=== PATIENT | female | born 1965 | race Caucasian/White ===

== ENCOUNTER 2018-10-21 00:57 | Inpatient (IN) ==
[2018-10-21 02:18] LABS: Baso % (Auto) 0.3 % (0.0-2.0); Eos # (Auto) 0.1 th/mm3 (0.0-0.4); Eos % (Auto) 1.4 % (0.0-4.0); Hematocrit 43.4 % (35.0-46.0); Lymph # (Auto) 3.3 th/mm3 (1.0-4.8); Lymph % (Auto) 37.5 % (9.0-44.0); Mean Corpuscular HGB Conc 34.5 % (32.0-36.0); Mean Corpuscular Hemoglobin 33.7 pg (27.0-34.0); Mean Corpuscular Volume 97.8 fL (80.0-100.0); Mean Platelet Volume 7.3 fL (7.0-11.0); Mono # (Auto) 0.6 th/mm3 (0.0-0.9); Mono % (Auto) 6.3 % (0.0-8.0); Neut # (Auto) 4.8 th/mm3 (1.8-7.7); Neut % (Auto) 54.5 % (16.0-70.0); Platelet Count 217 th/mm3 (150-450); Red Blood Count 4.44 mil/mm3 (4.00-5.30); Red Cell Distribution Width 13.7 % (11.6-17.2); White Blood Count 8.9 th/mm3 (4.0-11.0)
[2018-10-21 02:30] LABS: Alanine Aminotransferase 31 U/L (10-53); Albumin 4.2 g/dL (3.4-5.0); Anion Gap 8 meq/L (5-15); Aspartate Aminotransferase 24 U/L (15-37); Blood Urea Nitrogen 11 mg/dL (7-18); Calcium 8.6 mg/dL (8.5-10.1); Carbon Dioxide 27.3 meq/L (21.0-32.0); Chloride 111 meq/L (98-107); Glomerular Filtration Rate 83 mL/min (>89); Glucose,Random 93 mg/dL (74-106); Potassium 3.8 meq/L (3.5-5.1); Sodium 146 meq/L (136-145)
[2018-10-21 02:33] LABS: Alcohol 256 mg/dL (0-5)
[2018-10-21 02:39] LABS: Alkaline Phosphatase 69 U/L (45-117); Thyroid Stimulating Hormone 0.578 uIU/mL (0.358-3.740); Total Protein 8.3 g/dL (6.4-8.2)
--- NOTE | 2018-10-21 04:22 | ED ---
HPI General Chief Complaint: Psychiatric Symptoms Stated Complaint: Psych eval, [facility]SD Time Seen by Provider: 10/21/18 01:52 Source: patient and police Mode of arrival: other Limitations: no limitations History of Present Illness HPI Narrative: Patient presents to our facility under a [place] act by law enforcement. Patient states that she was seen in our facility 3 days ago for suicidal ideation/depression. Patient states that they did not help her and that she did not have any resources. States that since she has been home she has been drinking and has had thoughts of wanting to kill herself. Patient states that she had a plan to take a whole bottle of pills MD complaint: Reports suicidal ideation and feels depressed History of same: Yes Relieving factors: none Exacerbating factors: none Context: Reports recent alcohol abuse Associated psychiatric symptoms: Reports depression Associated symptoms: Denies confusion, headache, shortness of breath and vomiting Treatments prior to arrival: Reports none Related Data Home Medications Medication Instructions Recorded Confirmed atorvastatin 20 mg PO DAILY 10/18/18 10/21/18 fluticasone-vilanterol [Breo 1 inh INHALATION DAILY 10/18/18 10/21/18 Ellipta] hydroxyzine HCl 25 mg PO QID PRN 10/18/18 10/21/18 levetiracetam 1,000 mg PO BID 10/18/18 10/21/18 omeprazole 20 mg PO DAILY 10/18/18 10/21/18 Allergies Allergy/AdvReac Type Severity Reaction Status Date / Time epinephrine Allergy Mild Vomiting Unverified 10/21/18 01:16 QUIBRON Allergy Mild Vomiting Uncoded 10/21/18 01:16 Review of Systems ROS: all other systems reviewed are negative [facility] Medical History Medical History Asthma (Acute) COPD exacerbation (Acute) High cholesterol (Acute) Seizure (Acute) Vertigo (Acute) Surgical History Surgical History Hx of oral surgery (Acute) Hx of resection of rectum (Acute) Hx of tonsillectomy (Acute) Social History Social History Substance History: No History of Abuse Second Hand Smoke Exposure: Yes Smoking Status: Current every day smoker Tobacco Type: Cigarettes How Often Do You Have a Drink Containing Alcohol: 2 to 3 times a week Recent Travel in [facility] within the Last 8 Weeks: No Recent Out of Country Travel within the Last 8 Weeks: No Immunization History Tetanus Immunization: Unsure Exam HENME Head: normocephalic and atraumatic Nose: no nasal discharge and no epistaxis Mouth: moist mucous membranes Eyes Sclera: normal sclerae Pupils: PERRL Neck Neck: trachea midline and no JVD Resp Effort & Inspection: no use of accessory muscles Auscultation: clear to auscultation bilaterally Cardio Rate: regular rate Rhythm: regular rhythm Heart Sounds: no murmurs GI Inspection: non-distended Palpation: soft, no hepatosplenomegaly and nontender Skin General: dry skin (warm) Neuro General: alert and awake Cranial Nerves: other Speech: speech normal Motor: no movement abnormalities noted Extrem General: normal to inspection, no clubbing, no cyanosis and no edema Psych Mood: congruent mood Affect: normal affect Judgment: judgment good Course Initial Documented Vital Signs Temperature 97.4 F L 10/21/18 01:17 Pulse Rate 85 10/21/18 01:17 Respiratory Rate 18 10/21/18 01:17 Blood Pressure 125/83 10/21/18 01:17 Pulse Oximetry 95 10/21/18 01:17 Last Documented Vital Signs Temperature 97.4 F L 10/21/18 01:17 Pulse Rate 76 10/21/18 06:00 Respiratory Rate 17 10/21/18 06:00 Blood Pressure 119/72 10/21/18 06:00 Pulse Oximetry 98 10/21/18 06:00 Medical Decision Making MDM Narrative Medical decision making narrative: Patient presents to our facility under a [place] act by law enforcement. Patient states that she was seen in our facility 3 days ago for suicidal ideation/depression. Patient states that they did not help her and that she did not have any resources. States that since she has been home she has been drinking and has had thoughts of wanting to kill herself. Patient states that she had a plan to take a whole bottle of pills temperature is 97.4, 125/83, 95 pulse ox on room air, pulse is 80 Patient has no complaints upon arrival physical exam is unremarkable patient will recieve basic lab work and urine drug screen/tox screen Patient's alcohol level is 256 Patient is medically cleared at 0 400 Await psychiatric evaluation in the morning Medical Screen Exam Complete: Yes Emergency Medical Condition: Yes Differential Diagnosis Differential Diagnosis: Suicidal ideation, anxiety, depression Lab Data Lab results reviewed: Yes I reviewed the patient's lab results. Result diagrams: 10/21/18 01:23 10/21/18 01:23 Lab Results 10/21/18 10/21/18 Range/Units 01:23 01:23 WBC 8.9 (4.0-11.0) th/mm3 RBC 4.44 (4.00-5.30) mil/mm3 Hgb 15.0 (11.6-15.3) gm/dL Hct 43.4 (35.0-46.0) % MCV 97.8 (80.0-100.0) fL MCH 33.7 (27.0-34.0) pg MCHC 34.5 (32.0-36.0) % RDW 13.7 (11.6-17.2) % Plt Count 217 (150-450) th/mm3 MPV 7.3 (7.0-11.0) fL Neut % (Auto) 54.5 (16.0-70.0) % Lymph % (Auto) 37.5 (9.0-44.0) % [place] % (Auto) 6.3 (0.0-8.0) % Eos % (Auto) 1.4 (0.0-4.0) % Baso % (Auto) 0.3 (0.0-2.0) % Neut # (Auto) 4.8 (1.8-7.7) th/mm3 Lymph # (Auto) 3.3 (1.0-4.8) th/mm3 [place] # (Auto) 0.6 (0.0-0.9) th/mm3 Eos # (Auto) 0.1 (0.0-0.4) th/mm3 Baso # (Auto) 0.0 (0.0-0.2) th/mm3 WBC Differential . Differential Comment Auto diff final Sodium 146 H (136-145) meq/L Potassium 3.8 (3.5-5.1) meq/L Chloride 111 H (98-107) meq/L Carbon Dioxide 27.3 (21.0-32.0) meq/L Anion Gap 8 (5-15) meq/L BUN 11 (7-18) mg/dL Creatinine 0.73 (0.50-1.00) mg/dL Estimated GFR 83 L (>89) mL/min Random Glucose 93 (74-106) mg/dL Calcium 8.6 (8.5-10.1) mg/dL Magnesium 2.0 (1.5-2.5) mg/dL Total Bilirubin 0.2 (0.2-1.0) mg/dL AST 24 (15-37) U/L ALT 31 (10-53) U/L Alkaline Phosphatase 69 (45-117) U/L Total Protein 8.3 H (6.4-8.2) g/dL Albumin 4.2 (3.4-5.0) g/dL TSH 0.578 (0.358-3.740) uIU/mL Serum Alcohol 256 H (0-5) mg/dL Discharge Plan Discharge Disposition Patient Disposition: Sign Out(ED Internal Use Only) Discharge Condition Condition: Stable Discharge Details Diagnosis: Alcohol abuse, Major depression Physicians Team ED Provider: Shira Dhillon ED Midlevel Provider: Phuong Skelton Primary Care Provider: Primary Care Melinda Grubbs Rxs /Orders / Referrals /Forms Prescriptions: No Action atorvastatin 20 mg Tablet 20 mg PO DAILY RF: 0 omeprazole 20 mg Capsule,Delayed Release(Dr/Ec) 20 mg PO DAILY RF: 0 hydroxyzine HCl 25 mg Tablet 25 mg PO QID PRN (Reason: Itching) RF: 0 levetiracetam 1,000 mg Tablet 1,000 mg PO BID RF: 0 fluticasone-vilanterol [Breo Ellipta] 100-25 mcg/dose Blister With Device 1 inh INHALATION DAILY RF: 0 Status ED Status: Medically Cleared
[2018-10-21 10:37] LABS: Amphetamine Screen,Urine Neg (Neg); Barbiturate Screen,Urine Neg (Neg); Cannabinoid Screen,Urine Neg (Neg); Cocaine Screen,Urine Neg (Neg)
[2018-10-21 10:39] LABS: Opiate Screen,Urine Neg (Neg)
[2018-10-21] MEDS ORDERED: Bisacodyl 10 MG Supp RECTAL PRN (14:13)
[2018-10-21] MEDS ORDERED: LORazepam 1 MG Tablet PO PRN (14:13)
[2018-10-21] MEDS ORDERED: Aluminum/Magnesium/Simethacone Susp 30 ML UDC PO PRN (14:13)
[2018-10-21] MEDS ORDERED: Haloperidol Inj 5 MG/ML Ampul IV.PUSH PRN (14:13)
[2018-10-21] MEDS: Senna/Docusate Sodium 8.6/50 MG Tablet PO SCH (21:12)
[2018-10-22] MEDS: Senna/Docusate Sodium 8.6/50 MG Tablet PO SCH ×2 (09:06→21:09)
[2018-10-22] MEDS: levETIRAcetam 500 MG Tablet PO SCH ×2 (10:32→21:08)
[2018-10-22] MEDS: Pantoprazole Sodium 20 MG DR Tablet PO SCH (10:32)
[2018-10-22 10:58] LABS: Calcium 9.6 mg/dL (8.5-10.1); Potassium 4.2 meq/L (3.5-5.1)
[2018-10-22 11:05] LABS: Chol/HDL Ratio 4.69 Ratio; HDL Cholesterol 57.3 mg/dL (40.0-60.0)
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
--- NOTE | 2018-10-22 15:25 | P.CON ---
History of Present Illness Service: [facility] Consult date: 10/21/18 Requesting Physician: Lj Ridley Reason for Consult: Leg brace c/o pain, hx COPD, asthma, c/o vertigo Primary Care Provider: No Primary Care Physician Chief Complaint: "I need my medications" History of Present Illness: 53-year-old female with past medical history significant for COPD, asthma, hypercholesteremia, seizure disorder, vertigo and prior suicide attempt who presented to the emergency department on 09/20 with complaints of suicidal ideation and depression. [facility] consulted to assist with medical management regarding leg pain, COPD and vertigo. Patient is seen in the diaz and later examined in her room. She is extremely agitated and is requesting a new doctor. She reports that she is not on her scheduled medication which he takes at home and she is extremely frustrated regarding this. She reports she takes diclofenac for right ankle pain, was previously prescribed tramadol but states this is only for 10 tablets. She has been wearing her brace and reports that right ankle and leg swelling has significantly decreased. She also is requesting her inhalers be resumed once again, she also requests a breathing treatment at bedtime which she takes at home. Patient reports taking a cholesterol medication but is more so concerned over her psychiatric medications. She denies any fevers, chills, nausea, vomiting, diarrhea, shortness of breath or cough. Patient voices that she would like to be discharged and is requesting to be transferred to [facility] for further psychiatric evaluation. Review of Systems All other systems reviewed negative except as stated in HPI [facility] - History History Provided By: Patient - Medical History Medical History: Medical History (Last Reviewed 10/22/18 @ 15:17 by Radhika Nathan) Asthma COPD exacerbation High cholesterol Seizure Vertigo - Surgical History Surgical History: Surgical History (Last Reviewed 10/22/18 @ 15:17 by Radhika Nathan) Hx of oral surgery Hx of resection of rectum Hx of tonsillectomy - Social History I have reviewed the patient's Social History: Yes - Tobacco History Second Hand Smoke Exposure: Yes Tobacco Use In Past 30 Days: Yes Smoking Status: Current every day smoker Tobacco Type: Cigarettes (1PPD) - Alcohol History How Often Do You Have a Drink Containing Alcohol: Monthly or less - Substance Use History Substance History: No History of Abuse - Travel History Recent Travel in the [place] Within the Last 8 Weeks: No Recent Travel Out of the Country Within the Last 8 Weeks: No - Immunization History Tetanus Immunization: Unsure Hx Influenza Vaccine This Season: No Medications and Allergies Active Medications: Active Medications Al Hydrox/Mg Hydrox/Simethicone (Mag-Al Plus Susp Liq) 30 ml PO Q6H PRN PRN Reason: DYSPEPSIA Al Hydroxide/Mg Hydroxide (Milk Of Magnesia Liq) 30 ml PO Q12H PRN PRN Reason: Mild Constipation Albuterol (Ventolin Hfa Inh) 1 puff INH Q6H PRN PRN Reason: SHORTNESS OF BREATH/WHEEZING Atorvastatin Calcium (Lipitor) 20 mg PO HS [facility] Bisacodyl (Dulcolax Supp) 10 mg RECTAL DAILY PRN PRN Reason: SEVERE CONSITIPATION Diclofenac Sodium (Chris Kirkpatrick) 25 mg PO BID [facility] Flumazenil (Romazicon Inj) 0.2 mg IV.PUSH Q1M PRN PRN Reason: OVERSEDATION Fluticasone Propionate (Flonase Nasal Industry) 1 spray EACH NARE DAILY [facility] Last Admin: 10/22/18 10:32 Dose: 1 spray Fluticasone/Vilanterol (Breo Ellipta 100/25 Mcg Inh) 1 puff INH DAILY [facility] Last Admin: 10/22/18 10:32 Dose: 1 puff Haloperidol Lactate (Haldol Inj) 1 mg IV.PUSH Q15M PRN PRN Reason: for severe agitation Hydroxyzine HCl (Atarax) 25 mg PO Q6H PRN PRN Reason: ANXIETY Lactulose (Lactulose Liq) 30 ml PO DAILY PRN PRN Reason: SEVERE CONSITIPATION Levetiracetam (Keppra) 1,000 mg PO BID [facility] Last Admin: 10/22/18 10:32 Dose: 1,000 mg Lorazepam (Ativan) 1 mg PO Q4H PRN PRN Reason: for CIWA 8-10 Lorazepam (Ativan) 2 mg PO Q2H PRN PRN Reason: for CIWA 11-14 Last Admin: 10/21/18 15:26 Dose: 2 mg Lorazepam (Ativan Inj) 2 mg IV.PUSH Q1H PRN PRN Reason: for CIWA 15-20 Lorazepam (Ativan Inj) 2 mg IV.PUSH Q15M PRN PRN Reason: for CIWA > 20 Lorazepam (Ativan Inj) 1 mg IV.PUSH Q4H PRN PRN Reason: for CIWA 8-10 Lorazepam (Ativan Inj) 2 mg IV.PUSH Q2H PRN PRN Reason: for CIWA 11-14 Meclizine HCl (Antivert) 25 mg PO Q8H PRN PRN Reason: DIZZINESS Pantoprazole Sodium (Protonix) 20 mg PO DAILY [facility] Last Admin: 10/22/18 10:32 Dose: 20 mg Senna/Docusate Sodium (Oneida-Colace) 1 tab PO BID [facility] Last Admin: 10/22/18 09:06 Dose: Not Given Sennosides (Senokot) 17.2 mg PO Q12H PRN PRN Reason: Moderate Constipation Sertraline HCl (Zoloft) 100 mg PO DAILY [facility] Thiamine HCl (Vitamin B1) 100 mg PO DAILY [facility] Last Admin: 10/22/18 10:33 Dose: 100 mg Allergies Allergy/AdvReac Type Severity Reaction Status Date / Time epinephrine Allergy Mild Vomiting Unverified 10/21/18 01:16 QUIBRON Allergy Mild Vomiting Uncoded 10/21/18 01:16 Home Medications Medication Instructions Recorded Confirmed Type atorvastatin 20 mg PO HS 10/18/18 10/21/18 History fluticasone-vilanterol [Breo 1 inh INHALATION DAILY 10/18/18 10/21/18 History Ellipta] hydroxyzine HCl 25 mg PO QID PRN 10/18/18 10/21/18 History levetiracetam 1,000 mg PO BID 10/18/18 10/21/18 History omeprazole 20 mg PO DAILY 10/18/18 10/21/18 History albuterol sulfate [ProAir HFA] 90 mcg INHALATION PRN 10/21/18 10/21/18 History fluticasone 1 spray INTRANASAL DAILY 10/21/18 10/21/18 History omega 5-chc-bnv-fish oil [Fish Oil] 1,000 mg PO DAILY 10/21/18 10/21/18 History thiamine HCl (vitamin B1) [Vitamin 100 mg PO DAILY 10/21/18 10/21/18 History B-1] Physical Exam Vital signs: Vital Signs 10/21/18 15:22 10/21/18 15:49 10/22/18 05:55 Temperature 98.7 F 98.5 F 98 F Pulse Rate 68 69 67 Respiratory Rate 16 18 18 Blood Pressure 126/71 133/73 108/72 Pulse Oximetry 97 98 96 Intake & Output 10/21/18 10/22/18 10/22/18 18:59 06:59 18:59 Intake Total 840 / 840 Balance 840 / 840 Weight 68.5 kg Intake: Oral 840 / 840 Other: Weight On Admission 68.5 kg Narrative: GENERAL: Well-nourished, well-developed female in no acute distress. SKIN: Warm and dry. HEAD: Atraumatic. Normocephalic. EYES: Pupils equal and round. No scleral icterus. No injection or drainage. ENT: No nasal bleeding or discharge. Mucous membranes pink and moist. NECK: Trachea midline. No JVD. CARDIOVASCULAR: Regular rate and rhythm. RESPIRATORY: No accessory muscle use. Clear to auscultation. Breath sounds equal bilaterally. GASTROINTESTINAL: Abdomen soft, non-tender, nondistended. + Bowel sounds MUSCULOSKELETAL: Extremities without clubbing, cyanosis, or edema. No obvious deformities. Right ankle brace in place, no edema noted. NEUROLOGICAL: Awake, alert, oriented x3. No obvious cranial nerve deficits. Motor grossly within normal limits. Five out of 5 muscle strength in the arms and legs. Normal speech. Results - Labs CBC & Chem 7: 10/21/18 01:23 10/22/18 09:20 Labs: Laboratory Results - last 24 hr 10/22/18 09:20 Sodium 141 Potassium 4.2 Chloride 104 Carbon Dioxide 32.0 Anion Gap 5 BUN 15 Creatinine 0.74 Estimated GFR 81 L Random Glucose 89 Calcium 9.6 D Triglycerides 126 Cholesterol 269 H LDL Cholesterol, Calc 187 H HDL Cholesterol 57.3 Cholesterol/HDL Ratio 4.69 Assessment and Plan - Plan 53-year-old female with past medical history significant for COPD, asthma, hypercholesteremia, seizure disorder, vertigo and prior suicide attempt who presented to the emergency department on 09/20 with complaints of suicidal ideation and depression. [facility] consulted to assist with medical management regarding leg pain, COPD and vertigo. Increased depression Suicide ideation -Treatment plan per psychiatry History of COPD History of asthma Not exacerbated -Continue fluid to good zone, Brio, Ventolin as needed -Schedule albuterol at bedtime Seizure disorder, chronic -Continue patient's Keppra Hyperlipidemiacontinue statin Right ankle pain, chronic -X-ray completed 10/18 demonstrating bilateral avulsion fracture likely old, large plantar calcaneal spur -Continue brace for comfort, continue diclofenac Vertigo, chronic -Orthostatic BPs negative -Patient reports she normally takes meclizine for vertigo -Continue meclizine as needed Alcohol abuse -Continue CIWA -Multivitamin and thiamine DVT prophylaxisambulation Patient medically stable. [facility] will sign off, please reconsult if needed. Discussed Condition With: Patient and nursing staff
[2018-10-22 16:00] LABS: Hemoglobin A1c 5.6 % (4.3-6.0)
[2018-10-22] MEDS: Sertraline 100 MG Tablet PO SCH (16:02)
[2018-10-22 18:06] VITALS: RESP 16; O2SAT 98
[2018-10-23 06:19] VITALS: BP 112/52; PULSE 61; TEMP 98
[2018-10-23] MEDS: Pantoprazole Sodium 20 MG DR Tablet PO SCH (08:45)
[2018-10-23] MEDS: levETIRAcetam 500 MG Tablet PO SCH (08:45)
[2018-10-23] MEDS: Sertraline 100 MG Tablet PO SCH (08:46)
[2018-10-23] MEDS: Senna/Docusate Sodium 8.6/50 MG Tablet PO SCH (08:46)
[2018-10-23] MEDS ORDERED: Non-Formulary Drug (Omega 3-Dha-Epa-Fish Oil [Fish Oil] 1,000 MG) PO SCH (09:00)
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
== END 2018-10-23 13:25 | disposition home or self-care (01) | DRG 882 ==
LOC: NEPD 00:57 → NEDA 14:18 → H260 15:41
PROVIDERS: ADMIT Psychiatry & Neurology Child & Adolescent Psychiatry; ATTEND Psychiatry & Neurology Child & Adolescent Psychiatry